=== PATIENT | male | born 1995 | race Caucasian/White ===

== ENCOUNTER 2024-07-16 12:05 | Emergency (ER) | payer MEDICAID, SELFPAY ==
[2024-07-16 12:10] VITALS: BP 138/92; PULSE 100; RESP 17; TEMP 37; O2SAT 98; BMI 39.1
--- NOTE | 2024-07-16 12:28 | XR_ITS ---
Examination: PA lateral chest 2 views TECHNIQUE: Upright PA lateral chest 2 views Exam date and time: July 16, 2024 1241 hours Comparison April 02, 2019 INDICATIONS: Onset chest pain today FINDINGS: Normal heart size. Lungs are clear. The osseous structures are intact, old appearing fracture right fourth rib anteriorly IMPRESSION: No active disease
--- NOTE | 2024-07-16 12:28 | PD.EDRME ---
Rapid Medical Screening Exam RME Arrival date/time: 07/16/24 12:05 28-year-old male presents emergency department with complaints of nausea vomiting x 2 days recent cold. Unable to keep fluids down. I have greeted and performed a focused initial assessment of this patient. Initial appropriate labs ordered at this time. A comprehensive ED assessment and evaluation of the patient and analysis of all test and completion of medical decision making process will be conducted by additional ED provider. Chief Complaint: Abdominal Pain Time Seen by Provider: 07/16/24 12:27 Vital signs: Vital Signs Temperature 98.6 F 07/16/24 12:10 Pulse Rate 100 07/16/24 12:10 Respiratory Rate 17 07/16/24 12:10 Blood Pressure 138/92 H 07/16/24 12:10 Pulse Oximetry (%) 98 07/16/24 12:10 Oxygen Delivery Method Room Air 07/16/24 12:10
[2024-07-16 12:57] LABS: Basophils % (Auto) 0 % (0-2.5); Eosinophils # (Auto) 0.1 Thou/mm3 (0.0-0.5); Eosinophils % (Auto) 1 % (0-10); Hematocrit 42.9 % (41.0-53.0); Hemoglobin 15.4 g/dL (13.5-16.0); Immature Granulocytes % (Auto) 0 % (0-0); Immature Granulocytes Auto 0.04 Thou/mm3 (0.00-0.00); Lymphocytes # (Auto) 1.6 Thou/mm3 (1.0-4.8); Lymphocytes % (Auto) 15 % (10-50); Mean Corpuscular HGB Conc 35.9 g/dl (31.0-37.0); Mean Corpuscular Hemoglobin 30.2 pg (25.0-35.0); Mean Corpuscular Volume 84 fL (80-100); Monocytes # (Auto) 1.1 Thou/mm3 (0.0-0.8); Monocytes % (Auto) 11 % (0-12); Neutrophils # (Auto) 7.6 Thou/mm3 (1.8-7.7); Neutrophils % (Auto) 72 % (37-80); Nucleated Red Blood Cell % 0 /100 WBC (0); Platelet Count 384 Thou/mm3 (140-440); RDW Standard Deviation 38.9 fL (35.1-43.9); White Blood Count 10.6 Thou/mm3 (3.8-10.6)
[2024-07-16 13:19] LABS: Alanine Aminotransferase 29 U/L (10-49); Albumin, Serum 5.6 gm/dL (3.5-5.0); Albumin/Globulin Ratio 1.3 (1.2-2.2); Alkaline Phosphatase 143 U/L (46-116); Anion Gap 10 (7-16); Aspartate Amino Transferase 29 U/L (0-34); BUN/Creatinine Ratio 11 Ratio (12-20); Bilirubin,Total 1.8 mg/dL (0.3-1.2); Blood Urea Nitrogen 13 mg/dL (9-23); Calcium 10.8 mg/dL (8.3-10.6); Calcium (Corrected) 10.8 mg/dL (8.5-10.1); Carbon Dioxide 24.4 mMol/L (20.0-31.0); Chloride 98 mMol/L (98-107); Creatinine (Component) 1.2 mg/dL (0.6-1.3); Estimated Creatinine Clearance 109.2 mL/min (>60); Globulin 4.3 gm/dL (2.3-3.5); Glucose 108 mg/dL (74-106); Lipase 31 U/L (12-53); Osmolality,Calculated 265 (275-295); Potassium 3.3 mMol/L (3.4-5.1); Sodium 132 mMol/L (136-145); Total Protein 9.9 gm/dL (5.7-8.2); eGFR > 60 See Note
[2024-07-16] MEDS: ONDANSETRON ODT 4 MG TABRAP 8 MG PO (14:45)
--- NOTE | 2024-07-16 14:46 | XR_ITS ---
Examination: Abdomen sonogram, Limited Date and time of exam: July 16, 2024 1404 hours INDICATIONS: Right upper abdominal pain with nausea and vomiting beginning 2 days ago Technique: Real-time perkins scale transabdominal sonographic images of the upper abdomen obtained. Findings: Normal gallbladder Normal common bile duct 0.3 cm Pancreatic head 2.5 cm Liver 15.2 cm no liver lesions Normal hepatopedal portal venous flow Patent IVC IMPRESSION: Normal gallbladder Fatty liver
[2024-07-16 20:35] VITALS: BP 150/97; PULSE 105; RESP 18; TEMP 36.8; O2SAT 96
--- NOTE | 2024-07-16 20:52 | EDNOTE_ITS ---
ED Abdominal Pain RME/HPI General Chief Complaint: Abdominal Pain Stated complaint: ABD PAIN AND HEADACHE X 2 DAYS Time seen by provider: 07/16/24 12:27 Arrival date/time: 07/16/24 12:05 This is A 28-year-old male that complains of nausea, vomiting, and abdominal pain for the past 3 days. Patient continues to smoke marijuana. Patient states that he has also had upper respiratory symptoms such as headache, sore throat, runny nose and cough for the past 3 days. Patient denies any sick contacts at home. Patient has a history rectal atresia. Patient states that he feels like his port is working fine and he is flushed it with no issues. RME / HPI RME / HPI narrative: 07/16/24 12:05 28-year-old male presents emergency department with complaints of nausea vomiting x 2 days recent cold. Unable to keep fluids down. I have greeted and performed a focused initial assessment of this patient. Initial appropriate labs ordered at this time. A comprehensive ED assessment and evaluation of the patient and analysis of all test and completion of medical decision making process will be conducted by additional ED provider. Related Data Previous Rx's ?Medication ?Instructions ?Recorded ibuprofen 800 mg tablet 800 mg PO TID PRN pain #20 tabs 04/02/19 levofloxacin 500 mg tablet 500 mg PO QDAY #7 tabs 04/02/19 clindamycin HCl 300 mg capsule 300 mg PO TID #21 caps 06/03/24 albuterol sulfate 90 mcg/actuation 1 inh inhalation QID PRN shortness 07/16/24 aerosol inhaler of breath or wheezing #8.5 grams promethazine-DM 6.25 mg-15 mg/5 mL 5 ml PO Q6H PRN cough #120 mL 07/16/24 oral syrup metoclopramide HCl 10 mg tablet 10 mg PO Q6H PRN nausea and 07/18/24 (Reglan) vomiting #14 tabs metoclopramide HCl 10 mg tablet 10 mg PO Q6H PRN nausea and 07/18/24 (Reglan) vomiting #20 tabs Allergies Allergy/AdvReac Type Severity Reaction Status Date / Time adhesive tape Allergy Intermediate BLISTERS Verified 07/16/24 12:06 Review of Systems Review of Systems Systems Reviewed: All systems reviewed, normal except as documented Past Medical History Family History OTHER FAMILY HX: Not pertinent. Surgical History OTHER SURGICAL HX: None reported Social History SMOKING STATUS: Never smoker SUBSTANCE USE: does not use ALCOHOL: Never Travel History EBOLA RISK: No ED Exam General General appearance: Present alert and in no apparent distress Head Head exam: Present atraumatic Eye Eye exam: Present normal appearance, PERRL and EOMI ENT ENT exam: Present normal exam, normal oropharynx and mucous membranes moist Neck Neck exam: Present normal inspection, full ROM and trachea midline Chest Chest inspection: Present normal inspection and symmetric chest wall rise Respiratory Respiratory exam: Present other (mild expiratory wheezing ) Cardiovascular Cardiovascular exam: Present regular rate, normal rhythm and normal heart sounds Abdominal Exam Abdominal exam: Present soft and other (no pain to light palpation ) Extremities Exam Extremities exam: Present normal inspection and full ROM Back Exam Back exam: Present normal inspection and full ROM Neurological Exam Neurological exam: Present alert, oriented X3 and CN II-XII intact Psychiatric Psychiatric exam: Present normal affect and normal mood Skin Skin exam: Present warm, dry, intact and normal color Course Quality Measures none Orders Category Date Time Status Bedside COVID-19 Antigen Test NOW Care 07/16/24 12:27 Completed Bedside Influenza A&B Antigen Test NOW Care 07/16/24 12:28 Completed US gall bladder Stat Exams 07/16/24 14:46 Completed XR chest 2V Stat Exams 07/16/24 12:28 Completed CBC Stat Lab 07/16/24 12:37 Completed CMP [Comprehensive Metabolic Panel] Stat Lab 07/16/24 12:37 Completed Drug Screen,Urine Stat Lab 07/16/24 20:05 Completed Lipase Stat Lab 07/16/24 12:37 Completed Acetaminophen Tab [Tylenol ES Tab] Med 07/16/24 20:50 Discontinued 1,000 mg PO X1 ONE Albuterol/Ipratr Rt Venita [Duoneb Rt Venita] Med 07/16/24 20:51 Discontinued 3 ml INH X1 ONE Ibuprofen Tab [Motrin Tab] Med 07/16/24 20:50 Discontinued 800 mg PO X1 ONE Ondansetron Inj [Zofran Inj] Med 07/16/24 14:47 Discontinued 4 mg .ROUTE .STK-MED ONE Ondansetron Odt [Zofran Odt] Med 07/16/24 12:27 Discontinued 8 mg PO X1 ONE Promethazine Inj [Phenergan Inj] Med 07/16/24 20:41 Discontinued 25 mg IM X1 ONE Vital Signs Vital signs: Vital Signs Temperature 98.6 F 07/16/24 12:10 Pulse Rate 100 07/16/24 12:10 Respiratory Rate 17 07/16/24 12:10 Blood Pressure 138/92 H 07/16/24 12:10 Pulse Oximetry (%) 98 07/16/24 12:10 Oxygen Delivery Method Room Air 07/16/24 12:10 Abdominal Pain MDM MDM Narrative MDM Narrative:: Chest x ray shows: FINDINGS: Normal heart size. Lungs are clear. The osseous structures are intact, old appearing fracture right fourth rib anteriorly IMPRESSION: No active disease US gallbladder: Findings: Normal gallbladder Normal common bile duct 0.3 cm Pancreatic head 2.5 cm Liver 15.2 cm no liver lesions Normal hepatopedal portal venous flow Patent IVC IMPRESSION: Normal gallbladder Fatty liver CBC unremarkable. CMP shows t bili of 1.8. Alk phos of 143. Pt positive for marijuana. Pt given Zofran for nausea. Covid and influenza negative. Pt given ibuprofen and tylenol fopr pain. Promethazine IM for the naiusea and cough. Patient was given a breathing tx because of wheezing. Pt feels better and feels like he can go home. Pt verbalizes that he will follow up with [facility] provider in 1-2 days. Patient data External records reviewed:: [facility] previous records Clinical information provided by:: patient Social determinants that could affect healthcare access:: none Patient has the following chronic illnesses:: see hpi How is presenting disease/condition affected by chronic disease/condition?: exacerbated by Evaluation data The following diagnostics were reviewed and interpreted by me:: lab results and radiology exam(s) Lab and/or radiology exams considered but not ordered:: none Interpretation Summary: see note Medications / Prescriptions Medications or Prescriptions considered but not ordered:: none Medication administrations:: Medication Administration History Discontinued Medications Acetaminophen (Acetaminophen 500 Mg Tablet) 1,000 mg PO X1 ONE Stop: 07/16/24 20:51 Last Admin: 07/16/24 21:00 Dose: 1,000 mg Documented By: MAYNOR Albuterol/Ipratropium (Albuterol/Ipratropium (Duoneb) Rt Venita 3 Ml Nebu) 3 ml INH X1 ONE Stop: 07/16/24 20:52 Last Admin: 07/16/24 21:09 Dose: 3 ml Documented By: GRAYSON Ibuprofen (Ibuprofen Tab 400 Mg Tablet) 800 mg PO X1 ONE Stop: 07/16/24 20:51 Last Admin: 07/16/24 21:00 Dose: 800 mg Documented By: MAYNOR Ondansetron HCl (Ondansetron Odt 4 Mg Tabrap) 8 mg PO X1 ONE; Protocol Stop: 07/16/24 12:28 Last Admin: 07/16/24 14:45 Dose: 8 mg Documented By: MAYNOR Ondansetron HCl (Ondansetron Inj 2 Mg/Ml Inj 2 Ml) Confirm Administered Dose 4 mg .ROUTE .STK-MED ONE Stop: 07/16/24 14:48 Last Admin: 07/16/24 15:58 Dose: Not Given Documented By: SRI Non-Admin Reason: Duplicate Medication on eMAR Promethazine HCl (Promethazine Inj 25 Mg/Ml Vial) 25 mg IM X1 ONE; Protocol Stop: 07/16/24 20:42 Last Admin: 07/16/24 20:57 Dose: 25 mg Documented By: MAYNOR see mar Consultations Consultation(s) initiated? (list below): No Diagnosis Differential diagnosis abdominal pain: abdominal pain, gastroenteritis and other (drug induced nausea and vomiting, pneumonia, influenza ) Most likely diagnosis given after review of the tests above:: reactive airway disease Admission Indicated Admission indicated?: not indicated Admission Request Was there a request for admission?: No Disposition Plan Disposition Plan: Discharge Discharge Attestation Discharge Attestation: The patient and all family members were given an opportunity to ask questions and understood the discharge instructions. Discharge instructions specifically effects, indications for sooner follow up or return to the emergency department, and the expected course of current diagnosis. Patient condition: Stable Discharge Plan Plan Patient Disposition: HOME (Self Care) Patient condition on transfer: Stable Prescriptions/Referrals Prescriptions/Med Rec: New promethazine-DM 6.25-15 mg/5 mL syrup 5 ml PO Q6H PRN (Reason: cough) Qty: 120 0RF albuterol sulfate 90 mcg/actuation HFA aerosol inhaler 1 inh inhalation QID PRN (Reason: shortness of breath or wheezing) Qty: 8.5 0RF No Action levofloxacin 500 mg tablet 500 mg PO QDAY Qty: 7 0RF ibuprofen 800 mg tablet 800 mg PO TID PRN (Reason: pain) Qty: 20 0RF clindamycin HCl 300 mg capsule 300 mg PO TID Qty: 21 0RF metoclopramide HCl [Reglan] 10 mg tablet 10 mg PO Q6H PRN (Reason: nausea and vomiting) Qty: 14 0RF metoclopramide HCl [Reglan] 10 mg tablet 10 mg PO Q6H PRN (Reason: nausea and vomiting) Qty: 20 0RF Referrals: Gregor Wells MD [Primary Care Provider] - In 1 week Problem List Clinical Impression: Upper respiratory infection, viral, Vomiting, Reactive airway disease Patient/Caregiver Discharge Instructions Discharge Activity: activity as tolerated Education Materials: ED URI, Viral W/ Wheezing (Adult), ED Vomiting (Adult) Additional Instructions: Please drink plenty of fluids. Come back to the emergency room if symptoms change or worsen. Please follow-up with primary provider in 1 to 2 days. Print Language: Pakistani Stand Alone Forms: [employer] Award Info., Patient Portal Info Letter PA/[employer] Supervising Physician PA/[employer] Supervising Physician: lori
[2024-07-16] MEDS: PROMETHAZINE INJ 25 MG/ML VIAL IM (20:57)
[2024-07-16] MEDS: ACETAMINOPHEN 500 MG TABLET 1000 MG PO (21:00)
[2024-07-16] MEDS: IBUPROFEN TAB 400 MG TABLET 800 MG PO (21:00)
[2024-07-16] MEDS: ALBUTEROL/IPRATROPIUM (Duoneb) RT SOL 3 ML NEBU INH (21:09)
[2024-07-16 21:11] VITALS: PULSE 96; RESP 18; O2SAT 99
[2024-07-16 22:06] LABS: Amphetamine/Methamp Scrn,U Negative (Negative); Barbiturate Screen,Urine Negative (Negative); Benzodiazepines Screen,Urine Negative (Negative); Benzoylecgonine Screen, Ur Negative (Negative); Fentanyl Screen,Urine Negative (Negative); Opiate Screen,Urine Negative (Negative); THC Screen,Urine Positive (Negative)
== END 2024-07-16 21:27 | disposition home or self-care (01) ==
PROVIDERS: Nurse Practitioner Primary Care; Emergency Provider Emergency Medicine; PCP Family Medicine
DX: J06.9 Acute upper respiratory infection, unspecified (principal); J45.909 Unspecified asthma, uncomplicated; K76.0 Fatty (change of) liver, not elsewhere classified
CPT/HCPCS: 36415; 71046; 76705; 80053; 80307; 83690; 85025; 87400; 87811; 94640; 96372; 99284; A9270; J2550; Q0162

== ENCOUNTER 2024-07-18 05:03 | Emergency (ER) | payer MEDICAID, SELFPAY ==
[2024-07-18 05:10] VITALS: BP 157/93; PULSE 97; RESP 18; TEMP 36.8; O2SAT 98; BMI 33.9
--- NOTE | 2024-07-18 05:14 | XR_ITS ---
Examination: CT abdomen with intravenous contrast CT pelvis with intravenous contrast 2-D coronal reconstructions 2-D sagittal reconstructions Date and time of exam:July 18, 2024 0855 hrs. 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 CTDI: vol (mGy) 13.7 DLP: (mGycm) 867 Technique: Multiple axial sections of the abdomen and pelvis have been obtained. 64 slice high-resolution scanner used. 3 mm axial sections have been obtained, post intravenous injection 60 cc [id number] 2-D sagittal, coronal reconstructions obtained. Low dose protocols were performed. One or more of the following dose reduction techniques were used; automated exposure control, adjustment of the mA and/or KV according to patient size, use of iterative reconstruction technique. Findings: No focal liver or splenic lesions No gallstones No pancreatic or adrenal mass No hydronephrosis Aorta normal size Right lateral abdominal wall drainage tube projects in the right colon in satisfactory position No obstruction No diverticulitis No prostatomegaly Small fistulous tract from the anus axial image 234 extending to the skin surface in the right buttock region axial image 264 Markedly abnormal urinary bladder with wall thickening up to 20 mm Impression: Right lateral abdominal wall drainage tube projects in the right colon and in satisfactory position There appears to be a fistulous tract extending from the anus to the skin surface in the right buttock region Markedly abnormal thickening of the urinary bladder, which could relate to chronic cystitis, clinical correlation advised
--- NOTE | 2024-07-18 05:14 | XR_ITS ---
Examination: PA lateral chest 2 views Technique: Upright PA lateral chest 2 views Exam date and time: July 18, 2024 at 0528 hrs. Indications: Coughing beginning 3 days ago. Findings: Normal heart size The lungs are clear. The osseous structures are intact Impression: No pneumonia identified
--- NOTE | 2024-07-18 05:15 | EDRME_ITS ---
Rapid Medical Screening Exam [facility] Arrival date/time: 07/18/24 05:03 28M with history of congenital rectal atresia presents to ED with 3 days of N/V, gen ab pain/cramping, and constipation. Patient has also had URI symptoms. Chief Complaint: Nausea/Vomiting/Diarrhea Vital signs: Vital Signs Temperature 98.3 F 07/18/24 05:10 Pulse Rate 97 07/18/24 05:10 Respiratory Rate 18 07/18/24 05:10 Blood Pressure 157/93 H 07/18/24 05:10 Pulse Oximetry (%) 98 07/18/24 05:10 Oxygen Delivery Method Room Air 07/18/24 05:10
[2024-07-18 06:21] LABS: Collection Type, Urine Clean Catch
[2024-07-18 06:26] LABS: Lactate (Lactic Acid) 2.7 mMol/L (0.4-2.0)
[2024-07-18 06:29] LABS: Basophils # (Auto) 0.1 Thou/mm3 (0.0-0.2); Basophils % (Auto) 1 % (0-2.5); Eosinophils # (Auto) 0.1 Thou/mm3 (0.0-0.5); Eosinophils % (Auto) 1 % (0-10); Hematocrit 44.6 % (41.0-53.0); Hemoglobin 16.1 g/dL (13.5-16.0); Immature Granulocytes % (Auto) 1 % (0-0); Immature Granulocytes Auto 0.06 Thou/mm3 (0.00-0.00); Lymphocytes % (Auto) 17 % (10-50); Mean Corpuscular HGB Conc 36.1 g/dl (31.0-37.0); Mean Corpuscular Hemoglobin 30.3 pg (25.0-35.0); Mean Corpuscular Volume 84 fL (80-100); Monocytes % (Auto) 9 % (0-12); Neutrophils # (Auto) 8.2 Thou/mm3 (1.8-7.7); Neutrophils % (Auto) 72 % (37-80); Nucleated Red Blood Cell % 0 /100 WBC (0); Platelet Count 408 Thou/mm3 (140-440); RDW Standard Deviation 37.8 fL (35.1-43.9); Red Blood Count 5.31 Miln/mm3 (4.50-5.90); White Blood Count 11.4 Thou/mm3 (3.8-10.6)
[2024-07-18 06:53] LABS: Alanine Aminotransferase 47 U/L (10-49); Albumin, Serum 5.6 gm/dL (3.5-5.0); Albumin/Globulin Ratio 1.3 (1.2-2.2); Alkaline Phosphatase 139 U/L (46-116); Anion Gap 13 (7-16); Aspartate Amino Transferase 46 U/L (0-34); BUN/Creatinine Ratio 12 Ratio (12-20); Bilirubin,Total 1.9 mg/dL (0.3-1.2); Blood Urea Nitrogen 14 mg/dL (9-23); Calcium 10.6 mg/dL (8.3-10.6); Calcium (Corrected) 10.6 mg/dL (8.5-10.1); Carbon Dioxide 25.3 mMol/L (20.0-31.0); Chloride 96 mMol/L (98-107); Creatinine (Component) 1.2 mg/dL (0.6-1.3); Estimated Creatinine Clearance 118.1 mL/min (>60); Globulin 4.3 gm/dL (2.3-3.5); Glucose 104 mg/dL (74-106); Lipase 40 U/L (12-53); Osmolality,Calculated 268 (275-295); Potassium 3.3 mMol/L (3.4-5.1); Procalcitonin 0.08 ng/ml (0.0-0.49); Sodium 134 mMol/L (136-145); Total Protein 9.9 gm/dL (5.7-8.2); eGFR > 60 See Note
[2024-07-18 07:09] LABS: Amphetamine/Methamp Scrn,U Negative (Negative); Barbiturate Screen,Urine Negative (Negative); Benzodiazepines Screen,Urine Negative (Negative); Benzoylecgonine Screen, Ur Negative (Negative); Fentanyl Screen,Urine Negative (Negative); Opiate Screen,Urine Negative (Negative); THC Screen,Urine Positive (Negative)
[2024-07-18 07:12] LABS: Bacteria,Urine Rare; Bilirubin,Urine 1+ (Negative); Blood,Urine 1+ (Negative); Clarity,Urine Turbid (Clear/Hazy); Color,Urine Drk-Yellow (Lt Yel-Yel); Glucose, Urine Negative (Negative); Granular Casts,Urine 4 /hpf (0-1); Ketones,Urine Trace (Negative); Nitrite,Urine Negative (Negative); Protein,Urine 3+ (Neg - Trace); RBC,Urine 10 /hpf (0-3); Specific Gravity,Urine 1.033 (1.001-1.035); Squamous Epithelial Cell,Urine 11 /hpf (0-5); Transitional Epi Cells,Urine < 1 /hpf (0-5); WBC,Urine 13 /hpf (0-5)
[2024-07-18 07:19] LABS: Leukocyte Esterase,Urine Positive (Negative)
[2024-07-18] MEDS: SODIUM CHLORIDE 0.9% 1000 ML 1,000 ML 500 ML IV (08:17)
[2024-07-18] MEDS: METOCLOPRAMIDE INJ 5 MG/ML VIAL 2 ML 10 MG IVP (08:17)
[2024-07-18] MEDS: ONDANSETRON INJ 2 MG/ML INJ 2 ML 4 MG IV (08:19)
[2024-07-18 09:27] LABS: Reflex Lactate? Y
[2024-07-18 10:01] LABS: Lactic Acid, 3 HR 0.9 mMol/L (0.4-2.0)
[2024-07-18 12:40] LABS: Collection Type, Urine Catheter
[2024-07-18 12:49] LABS: Bilirubin,Urine 2+ (Negative); Blood,Urine Trace-Intact (Negative); Clarity,Urine Clear (Clear/Hazy); Color,Urine Yellow (Lt Yel-Yel); Culture Indicated,Urine Not Indicated; Glucose, Urine Negative (Negative); Ketones,Urine 2+ (Negative); Leukocyte Esterase,Urine Negative (Negative); Nitrite,Urine Negative (Negative); Protein,Urine 1+ (Neg - Trace); Specific Gravity,Urine 1.015 (1.001-1.035); Urobilinogen,Urine 0.2 mg/dL (0.0-1.0)
[2024-07-18 12:54] LABS: Bacteria,Urine Rare; RBC,Urine 5 /hpf (0-3); Squamous Epithelial Cell,Urine 2 /hpf (0-5); WBC,Urine 1 /hpf (0-5)
--- NOTE | 2024-07-18 14:01 | EDNOTE_ITS ---
Nausea/Vomit./Diarrhea-RME/HPI General Chief complaint: Nausea/Vomiting/Diarrhea Stated complaint: VOMITING Time Seen by Provider: 07/18/24 06:45 Source: patient Arrival date/time: 07/18/24 0600 This is a 28-year-old male with significant past medical history of rectal atresia, chronic abdominal pain, c-tube (cecostomy tube in place) presents to the emergency department with complaints of ongoing vomiting for the last 4 days. Patient was evaluated in the emergency department 2 days ago for similar episode reports no prescriptions of medication was sent to pharmacy prompting his ED visit today. Admits to marijuana use chronically last smoked 4 days ago when his vomiting began. He denies any fever, chills no rigors no dysuria no hematuria no abdominal pain no flank pain, he denies any rectal pain or rectal discharge. 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 Patient has also had URI symptoms. Related Data Previous Rx's ?Medication ?Instructions ?Recorded ibuprofen 800 mg tablet 800 mg PO TID PRN pain #20 tabs 04/02/19 levofloxacin 500 mg tablet 500 mg PO QDAY #7 tabs 04/02/19 clindamycin HCl 300 mg capsule 300 mg PO TID #21 caps 06/03/24 albuterol sulfate 90 mcg/actuation 1 inh inhalation QID PRN shortness 07/16/24 aerosol inhaler of breath or wheezing #8.5 grams promethazine-DM 6.25 mg-15 mg/5 mL 5 ml PO Q6H PRN cough #120 mL 07/16/24 oral syrup metoclopramide HCl 10 mg tablet 10 mg PO Q6H PRN nausea and 07/18/24 (Reglan) vomiting #14 tabs metoclopramide HCl 10 mg tablet 10 mg PO Q6H PRN nausea and 07/18/24 (Reglan) vomiting #20 tabs ondansetron 4 mg disintegrating 4 mg PO Q8H 4 days #12 tabs 07/18/24 tablet Allergies Allergy/AdvReac Type Severity Reaction Status Date / Time adhesive tape Allergy Intermediate BLISTERS Verified 07/16/24 12:06 Review of Systems Review of Systems Systems Reviewed: All systems reviewed, normal except as documented Narrative Review of Systems: See HPI ED Exam Narrative Physical exam: General: 28-year-old Sittiing in Exam table in no acute distress, answering questions appropriately HENT: normocephalic, atraumatic, EOMI, PERRLA, moist mucous membranes Chest: chest wall is nontender Cardiac: regular rate and rhythm, normal S1 and S2, no murmurs, rubs, or gallops, capillary refill ?2 seconds Pulmonary: clear to auscultation bilaterally, no wheezing, crackles, or rhonchi Abdominal: active bowel sounds, soft, nontender, nondistended, + C tube located on right lower quadrant soft no erythema noted. Rectal exam noted no drainage no fistula tract noted Neuro: A&OX3, CN II-XII intact, sensation grossly intact bilaterally in UE and LE. Skin: no rashes, no ecchymosis Ext: no lower extremity edema Course Quality Measures none Orders Category Date Time Status CT Screening NOW Care 07/18/24 05:14 Completed Insert IV NOW Care 07/18/24 05:14 Completed Insert IV NOW Care 07/18/24 07:[address] abdomen pelvis w con Stat Exams 07/18/24 05:14 Completed XR chest 1V portable Stat Exams 07/18/24 05:14 Completed CBC Stat Lab 07/18/24 06:17 Completed CMP [Comprehensive Metabolic Panel] Stat Lab 07/18/24 06:17 Completed Drug Screen,Urine Stat Lab 07/18/24 05:24 Completed Lactate (Lactic Acid) Stat Lab 07/18/24 06:17 Completed Lactic Acid, 3 HR Stat Lab 07/18/24 09:57 Completed Lipase Stat Lab 07/18/24 06:17 Completed Procalcitonin Stat Lab 07/18/24 06:17 Completed UA [Urinalysis] Stat Lab 07/18/24 05:24 Completed UA, C/S IF [Urinalysis, C/S if Indicated] Stat Lab 07/18/24 12:15 Completed Metoclopramide Inj [Reglan Inj] Med 07/18/24 07:01 Discontinued 10 mg IVP X1 ONE Ondansetron Inj [Zofran Inj] Med 07/18/24 05:15 Discontinued 4 mg IV X1 ONE Sodium Chloride 0.9% 1000 ml [Ns] 1,000 ml Med 07/18/24 05:15 Discontinued IV 500 mls/hr Vital Signs Vital signs: Vital Signs Temperature 98.3 F 07/18/24 05:10 Pulse Rate 97 07/18/24 05:10 Respiratory Rate 18 07/18/24 05:10 Blood Pressure 157/93 H 07/18/24 05:10 Pulse Oximetry (%) 98 07/18/24 05:10 Oxygen Delivery Method Room Air 07/18/24 05:10 Nausea/Vomiting/Diarrhea MDM Narrative MDM Narrative:: This is a 28-year-old male with significant past medical history of rectal atresia, chronic abdominal pain, c-tube (cecostomy tube in place) presents to the emergency department with complaints of ongoing vomiting for the last 4 days. Patient was evaluated in the emergency department 2 days ago for similar episode reports no prescriptions of medication was sent to pharmacy prompting his ED visit today. Admits to marijuana use chronically last smoked 4 days ago when his vomiting began. He denies any fever, chills no rigors no dysuria no hematuria no abdominal pain no flank pain, he denies any rectal pain or rectal discharge. Clinically the patient appears well, after medications were given and IV fluids patient has had no vomiting no nausea. Patient's vital signs stable no fever. Due to being this second visit for nausea and vomiting and his history of rectal atresia a CT was done today. There is no blockage no concerns with cecostomy tube. His CT does demonstrate chronic cystitis similar to the CT done in June 2024. However patient denies any dysuria or hematuria no flank pain and is afebrile. We did go ahead and completed a In-N-Out catheter for clean specimen which ruled out acute infection or fistulous tract to the bladder. Patient symptoms most likely are due to his chronic marijuana use I did advise the patient to decrease or stop smoking marijuana. A prescription of antiemetics were sent to the pharmacy. I strictly advised for him to follow-up with his PCP for urology referral due to the chronic cystitis on past imaging. Strict ER precautions given to patient. Patient agrees with plan Patient data External records reviewed:: [facility] previous records Clinical information provided by:: patient Social determinants that could affect healthcare access:: none Patient has the following chronic illnesses:: Cecostomy tube, rectal atresia How is presenting disease/condition affected by chronic disease/condition?: uneffected by Evaluation data The following diagnostics were reviewed and interpreted by me:: lab results and radiology exam(s) Lab and/or radiology exams considered but not ordered:: All considered ordered Interpretation Summary: Examination: CT abdomen with intravenous contrast CT pelvis with intravenous contrast 2-D coronal reconstructions 2-D sagittal reconstructions Date and time of exam:July 18, 2024 0855 hrs. 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 CTDI: vol (mGy) 13.7 DLP: (mGycm) 867 Technique: Multiple axial sections of the abdomen and pelvis have been obtained. 64 slice high-resolution scanner used. 3 mm axial sections have been obtained, post intravenous injection 60 cc [id number] 2-D sagittal, coronal reconstructions obtained. Low dose protocols were performed. One or more of the following dose reduction techniques were used; automated exposure control, adjustment of the mA and/or KV according to patient size, use of iterative reconstruction technique. Findings: No focal liver or splenic lesions No gallstones No pancreatic or adrenal mass No hydronephrosis Aorta normal size Right lateral abdominal wall drainage tube projects in the right colon in satisfactory position No obstruction No diverticulitis No prostatomegaly Small fistulous tract from the anus axial image 234 extending to the skin surface in the right buttock region axial image 264 Markedly abnormal urinary bladder with wall thickening up to 20 mm Impression: Right lateral abdominal wall drainage tube projects in the right colon and in satisfactory position There appears to be a fistulous tract extending from the anus to the skin surface in the right buttock region Markedly abnormal thickening of the urinary bladder, which could relate to chronic cystitis, clinical correlation advised Medications / Prescriptions Medications / Prescriptions considered but not ordered:: yes Medication administrations:: Medication Administration History Discontinued Medications Sodium Chloride (Ns) 1,000 mls @ 500 mls/hr IV .Q2H ONE Stop: 07/18/24 07:14 Last Infusion: 07/18/24 09:36 Dose: Infused Documented By: Chrissy Admin: 07/18/24 08:17 Dose: 500 mls/hr Documented By: Chrissy Metoclopramide HCl (Metoclopramide Inj 5 Mg/Ml Vial 2 Ml) 10 mg IVP X1 ONE; Protocol Stop: 07/18/24 07:02 Last Admin: 07/18/24 08:17 Dose: 10 mg Documented By: [facility] Ondansetron HCl (Ondansetron Inj 2 Mg/Ml Inj 2 Ml) 4 mg IV X1 ONE; Protocol Stop: 07/18/24 05:16 Last Admin: 07/18/24 08:19 Dose: 4 mg Documented By: Chrissy All medications administered and effective Consultations Consultation(s) initiated? (list below): No Diagnosis Nausea Differential Diagnosis: gastroenteritis, drug-induced nausea and vomiting, dehydration and other (Small bowel, pancreatitis, cannabis hyperemesis syndrome, urinary tract infection, chronic cystitis) Most likely diagnosis given after review of the tests above:: Hyperemesis cannabinoid syndrome, chronic cystitis Admission Indicated Admission indicated?: not indicated Admission Request Was there a request for admission?: No Disposition Plan Disposition Plan: Discharge Discharge Attestation Discharge Attestation: The patient and all family members were given an opportunity to ask questions and understood the discharge instructions. Discharge instructions specifically effects, indications for sooner follow up or return to the emergency department, and the expected course of current diagnosis. Patient condition: Stable Discharge Plan Plan Patient Disposition: HOME (Self Care) Patient condition on transfer: Stable Prescriptions/Referrals Prescriptions/Med Rec: New metoclopramide HCl [Reglan] 10 mg tablet 10 mg PO Q6H PRN (Reason: nausea and vomiting) Qty: 14 0RF metoclopramide HCl [Reglan] 10 mg tablet 10 mg PO Q6H PRN (Reason: nausea and vomiting) Qty: 20 0RF ondansetron 4 mg tablet,disintegrating 4 mg PO Q8H 4 Days Qty: 12 0RF No Action levofloxacin 500 mg tablet 500 mg PO QDAY Qty: 7 0RF ibuprofen 800 mg tablet 800 mg PO TID PRN (Reason: pain) Qty: 20 0RF clindamycin HCl 300 mg capsule 300 mg PO TID Qty: 21 0RF promethazine-DM 6.25-15 mg/5 mL syrup 5 ml PO Q6H PRN (Reason: cough) Qty: 120 0RF albuterol sulfate 90 mcg/actuation HFA aerosol inhaler 1 inh inhalation QID PRN (Reason: shortness of breath or wheezing) Qty: 8.5 0 RF Referrals: Gregor Wells MD [Primary Care Provider] - In 1 week Problem List Clinical Impression: Chronic cystitis, Cannabis hyperemesis syndrome concurrent with and due to cannabis abuse, Abdominal pain Patient/Caregiver Discharge Instructions Discharge Activity: activity as tolerated Education Materials: Cannabinoid Hyperemesis Syndrome, Abdominal Pain Additional Instructions: It is very important that you establish care at a nearby clinic, and get a GI referral to follow-up on your chronic GI issues. -As I reviewed with you your CTs in the past that showed chronic cystitis however your urine is negative. I recommend that your doctor send a referral to a urologist. -Sent you to medications that you can use as needed for nausea please stop using any marijuana please Advance your food as tolerated. As discussed please return to the emergency department this any worsening symptoms change in condition. Print Language: Lao Stand Alone Forms: [employer] Info., Patient Portal Info Letter Attestation Attestation The patient was seen by the midlevel practitioner. I, the co-signing physician, was present during the entire ER visit. While I did not physically examine the patient, I was available for consultation as needed.
== END 2024-07-18 14:43 | disposition home or self-care (01) ==
PROVIDERS: Nurse Practitioner Primary Care; Physician Assistant; Emergency Provider Emergency Medicine; PCP Family Medicine
DX: N30.20 Other chronic cystitis without hematuria (principal); R11.2 Nausea with vomiting, unspecified; F12.10 Cannabis abuse, uncomplicated; R05.9 Cough, unspecified
CPT/HCPCS: 36415; 71045; 74177; 80053; 80307; 81001; 83605; 83690; 84145; 85025; 96361; 96374; 96375; 99285; A4649; J2405; J2765; J7030; Q9967